=== PATIENT | female | born 1985 | race Caucasian/White ===

== ENCOUNTER → 2017-06-14 | Outpatient (CLI) | payer BC ==
[~2017-06-14] MED LIST: BCPILLS PO; ONDA4TAB7 SL
== END | disposition home or self-care (01) ==
LOC: C.LAB 07:45
PROVIDERS: ATTEND Obstetrics & Gynecology
DX: Z31.9 Encounter for procreative management, unspecified (principal)

== ENCOUNTER → 2017-11-15 | Outpatient (CLI) | payer BC | END | disposition home or self-care (01) | LOC: C.LAB 07:15 | PROVIDERS: ATTEND Obstetrics & Gynecology Reproductive Endocrinology | DX: N97.9 Female infertility, unspecified (principal) ==

== ENCOUNTER → 2017-11-23 | Outpatient (CLI) | payer BC | END | disposition home or self-care (01) | LOC: C.LAB 07:38 | PROVIDERS: ATTEND Obstetrics & Gynecology Reproductive Endocrinology | DX: N97.9 Female infertility, unspecified (principal) ==

== ENCOUNTER 2021-08-08 15:26 | Inpatient (IN) ==
[2021-08-08] MEDS ORDERED: LACTATED RINGER'S 1,000 ML IV SCH ×2 (16:15→20:04)
--- NOTE | 2021-08-08 16:19 | History & Physical Report ---
Date of Service August 08, 2021 Assessment & Plan (1) Previous delivery affecting , antepartum: Plan: Patient was hoping for TOLAC but after discussing additional risks with decreased BPP score, unripe cervix / requires IOL, she elects repeat as the safest option for her delivery at this time. (2) Oligohydramnios antepartum: Plan: Discovered today in office after decreased movement and nonreactive NST, found BPP of 6/10 with oligo. Given GA >39wk would proceed to delivery at this time. History of Present Illness Primary Care Provider: NO PCP 36yo (prior for twins, MAB and Ectopic) sent from office to L&D. Was seen for routine PNC visit and found to have decreased FM, therefore got NST, which was reassuring but nonreactive. BPP done and discovered oligohydramnios, BPP 6/10. She discussed with physician in office that at >39wk with oligo, typically we would not wait or repeat BPP in a day, rather should proceed to delivery today, and was sent to L&D. On arrival to L&D, I had opportunity to sit and discuss with the patient. She was very much hoping for TOLAC, as she did not want to have to go through surgical recovery, and had discussed with another provider the possibility of IOL if cervix was ripe. At this time per MD in office she is not ripe (Schneider <6) and has the unexpected additional factor of a fetus who has nonreassuring testing today. We discussed that although I will not refuse her an IOL attempt if she wants, there are multiple risk factors both in her and in our current facility (unripe cervix, testing indicating low fluid / suggesting poor placental function, meaning a high risk of NRFHT during labor which would trigger a decision for stat ; high current census, construction leaving no OR on same floor as L&D, etc) pushing her beyond the standard quoted risks of TOLAC, thus I do not recommend attempting IOL/TOLAC. Her safest course of delivery for this baby is undoubtedly a repeat . She was very disappointed but understood the reasoning and said she "will always do what is safest." We discussed her PTSD and fears from her last delivery, attempted to get an understanding of how we can help this delivery go well for her AND send her and this baby home healthy together. She wanted to wait until the FOB was here to make a final decision but anticipated agreeing to a repeat . Addendum: After FOB arrives and further discussion, patient elects to move forward with repeat CS. Consent completed with patient and FOB together, all questions answered. Allergies Allergy/AdvReac Type Severity Reaction Status Date / Time cephalexin [From Keflex] AdvReac Severe vertigo Verified 08/08/21 13:31 Home Medications Medication Instructions Recorded Confirmed Type aspirin 81 mg tablet,delayed 81 mg PO QPM 04/29/21 08/08/21 History release prenat.vits,shazia,[id number]-[id number] 1 tab PO DAILY 06/07/21 08/08/21 History Breast Pump #1 ea 07/18/21 08/08/21 Rx Breast Pump #1 ea 07/18/21 08/08/21 Rx Patient History Medical History Abnormal Pap smear of cervix 04/12 - Cotest HPV + normal colpo (during preg) 06/13 ASCUS HPV neg Chronic interstitial cystitis Gestational thrombocytopenia low platelet count last one was 96 Infertility Varicella vaccination Surgical History delivery delivered S/P wisdom tooth extraction Family History Father Coronary heart disease Mother Breast cancer Multiple sclerosis Colorectal cancer Aunt Breast cancer Denies family history of Ovarian cancer Social History Smoking Status: Never smoker Second Hand Exposure: No; Hx Alcohol Use: No Hx Substance Use: No Preferred Language: Kenyan Communication Ability: Effective Clothes Designer Required: No Beliefs That Will Affect Care: None marital status: marital status details: Justin Watson (35) [phone] Current Living Situation: Family Current Living Situation Comment: lives with spouse, 2 children, cat-spouse changing litter current occupational status: employed current occupation: [employer] [address] Other Information That Helps Us Care for You: No Feels Safe at Home: Yes Safety Concerns: Feels Safe At This Time Assistive Devices: None Physical Exam Constitutional: WD/WN, vitals as above Eyes: PERRL, conjunctivae normal, anicteric sclerae ENMT: external ear and nose normal, oropharynx normal Neck: supple Respiratory: normal respiratory effort and able to speak in complete sentences; no respiratory distress Cardiovascular: Rate/Rhythm: regular rate and regular rhythm Gastrointestinal (Abdomen): Gravid / AGA, nontender Musculoskeletal: no cyanosis or clubbing, extremities motor strength 5/5 Skin: no rashes, warm and dry Neurologic: patellar DTR's 2+ bilat, sensation intact Psychiatric: A+Ox3, euthymic affect Genitourinary: Speculum/Bimanual Exam: no vaginal lesions, no vaginal bleeding and uterus nontender OB Exam Abdomen: + vertex OB Exam Monitor Tracing: + external FHT monitor used, + external uterine monitor used and + category I Per Dr. Pascal in office, /-2 and no evidence of rupture (I discussed this visit and exam with Dr. Pascal by phone) Lymphatic: no cervical or axillary lymphadenopathy Code Status & VTE Plan VTE Prophylaxis Plan VTE Prophylaxis will be ordered: Yes Coding Level of Care Code None Diagnoses Previous delivery affecting , antepartum O34.219 Oligohydramnios antepartum O41.00X0
[2021-08-08 16:26] LABS: Hemoglobin 12.2 g/dL (12.0-16.0); Mean Corpuscular Hemoglobin 30.2 pg (25-34); Mean Corpuscular Hgb Conc 33.9 g/dL (32-36); Mean Corpuscular Volume 89.1 fL (80-100); Mean Platelet Volume 10.9 fL (7.4-10.4); Platelet Count 153 K/uL (130-400); RDW Coefficient of Variation 13.2 % (11.5-14.5); RDW Standard Deviation 42.5 fL (36.4-46.3); Red Blood Count 4.04 M/uL (4.2-5.4); White Blood Count 10.14 K/uL (4.8-10.8)
[2021-08-08] MEDS ORDERED: CITRIC ACID/SODIUM CITRATE 15 ML UDC PO SCH (16:30)
[2021-08-08] MEDS ORDERED: CLINDAMYCIN 900 MG in DEXTROSE 5% 50 ML IV SCH (16:30)
[2021-08-08 16:49] LABS: Alanine Aminotransferase 14 U/L (12-78); Albumin Level 2.6 gm/dl (3.4-5.0); Aspartate Aminotransferase 14 U/L (15-37); Bilirubin Direct < 0.1 mg/dl (0-0.2); Blood Urea Nitrogen 14 mg/dl (7-18); Calcium 8.8 mg/dl (8.5-10.1); Carbon Dioxide 22 mmol/L (21-32); Chloride 107 mmol/L (98-107); Est GFR (African American) 126.6 ml/min; Est GFR (Non-African American) 109.3 ml/min; Glucose 75 mg/dl (70-99); Potassium 3.6 mmol/L (3.5-5.1); Sodium 138 mmol/L (136-145)
[2021-08-08 16:51] LABS: Albumin Globulin Ratio 0.7 (0.9-2); Alkaline Phosphatase 331 U/L (45-117); Bilirubin,Total 0.4 mg/dl (0.2-1); Globulin 3.7 gm/dl (2.5-4.0); Total Protein 6.3 gm/dl (6.4-8.2)
[2021-08-08] MEDS ORDERED: MoRPHine SULFATE PF 1 MG/ML 10 ML AMP/VIAL ONE (17:53)
[2021-08-08] MEDS ORDERED: OXYTOCIN 10 UNITS/ML VIAL ONE ×2 (17:53→18:52)
[2021-08-08] MEDS ORDERED: fentaNYL citrate 100 MCG/2 ML VIAL ONE (17:53)
--- NOTE | 2021-08-08 18:12 | Anesthesiology Consultation ---
Date of Service August 08, 2021 Assessment & Plan Chart Review Chart Review: Acceptable Risk for Surgery and Patient NOT seen in Pre Admission Testing Consults Requested none ASA ASA2E Proposed Anesthesia Anesthesia Type: MAC Spinal Risk / Benefits Reviewed With: PT / POA / Parent / Guardian, Accepts Plan and Informed Consent Obtained History Surgery Operation Date: 08/08/21 18:30 Proposed Procedures p Section in LD(Bilateral) - Merary Sawant MD Height/Weight Height: 5 ft 8 in Weight: 99.79 kg Allergies Allergy/AdvReac Type Severity Reaction Status Date / Time cephalexin [From Keflex] AdvReac Severe vertigo Verified 08/08/21 13:31 Medications Home Medications Medication Instructions Recorded Confirmed Last Taken aspirin 81 mg tablet,delayed 81 mg PO QPM 04/29/21 08/08/21 08/07/21 23:00 release prenat.vits,shazia,wkm-gvwe-bkhxu 1 tab PO DAILY 06/07/21 08/08/21 08/07/21 23:00 Breast Pump #1 ea 07/18/21 08/08/21 Unknown Breast Pump #1 ea 07/18/21 08/08/21 Unknown NPO Date Last Intake of Fluids: 08/08/21 Time Last Intake of Fluids: 14:00 Date Last Intake of Solids: 08/08/21 Time Last Intake of Solids: 12:00 Last Intake of Solids Comment: yogurt Past Medical History Medical History Abnormal Pap smear of cervix 04/12 - Cotest HPV + normal colpo (during preg) 06/13 ASCUS HPV neg Chronic interstitial cystitis Gestational thrombocytopenia low platelet count last one was 96 Infertility Varicella vaccination Exercise / Class Metabolic Activity II 4-5 Yardwork/Stairs/Walk up hill Past Family History Family History Father Coronary heart disease Mother Breast cancer Multiple sclerosis Colorectal cancer Aunt Breast cancer Denies family history of Ovarian cancer Past Surgical History Surgical History delivery delivered S/P wisdom tooth extraction Past Anesthesia History No Hx of Anesthesia Complications and No Family Hx of Anesthesia Complications History of PONV No Hx of PONV and No Hx of Motion Sickness Social History Smoking Status: Never smoker Hx Alcohol Use: No Hx Substance Use: No substance use type: does not use Review of Systems no chest pain or sob Physical Exam Vital Signs Last Vital Signs Temp 36.9 C 08/08/21 16:06 Pulse 103 H 08/08/21 18:10 Resp 18 08/08/21 16:06 BP 122/79 08/08/21 16:15 Pulse Ox 98 08/08/21 18:10 ENMT Mouth: no TMJ abnormality Thyromental Distance: > or= 3.5 Finger Breadths Mallampati Class: II Neck normal visual inspection Respiratory normal respiratory effort Auscultation: lungs clear to auscultation bilaterally Cardiovascular Rate/Rhythm: regular rate and regular rhythm Musculoskeletal Spine: normal cervical ROM Neurologic moves all extremities Psychiatric Orientation: alert and oriented x 3 Testing Laboratory Results 08/08/21 16:16 08/08/21 16:16 Blood Type A Negative 08/08/21 16:16 Antibody Screen POSITIVE A 08/08/21 16:16
[2021-08-08] MEDS ORDERED: NALOXONE HCL 0.4 MG/1 ML VIAL/CARP IV PRN (18:14)
[2021-08-08] MEDS ORDERED: ONDANSETRON INJ 2 MG/ML 2 ML VIAL IV PRN (18:14)
[2021-08-08] MEDS ORDERED: ePHEDrine sulfate 50 MG/ML AMP IV PRN (18:14)
[2021-08-08] MEDS ORDERED: NALBUPHINE HCL INJ 10 MG/ML AMP IV PRN (18:14)
[2021-08-08] MEDS ORDERED: HYDROmorphone INJ 0.5 MG/0.5 ML SYR IV PRN (18:14)
[2021-08-08] MEDS ORDERED: LACTATED RINGER'S 500 ML IV PRN (18:14)
[2021-08-08] MEDS ORDERED: KETOROLAC 30 MG/ML VIAL IV PRN (18:14)
[2021-08-08] MEDS ORDERED: diphenhydrAMINE 50 MG/ML VIAL IV PRN (18:14)
[2021-08-08] MEDS ORDERED: NALOXONE HCL 1 MG in SODIUM CHLORIDE 0.9% 1000ML 1,000 ML IV PRN (18:14)
[2021-08-08] MEDS ORDERED: NALOXONE HCL 0.08 MG in SYRINGE 1.8 ML IV PRN (18:14)
[2021-08-08] MEDS ORDERED: MoRPHine SULFATE PF 1 MG/ML 10 ML AMP/VIAL INT SPINAL ONE (18:14)
[2021-08-08] MEDS ORDERED: NO NARCOTICS OR SEDATIVES SCH (18:15)
[2021-08-08] MEDS ORDERED: SODIUM CHLORIDE 0.9% 1000ML 1,000 ML IV SCH (18:15)
[2021-08-08] MEDS ORDERED: DC INTRASPINAL MORPHINE SCH (18:15)
[2021-08-08] MEDS ORDERED: PHENYLEPHRINE 100MCG/ML 5ML SYR ONE (18:40)
--- NOTE | 2021-08-08 19:28 | Operative Report ---
PG Post Operative Report Pre & Post Diagnosis Operation Date: 08/08/21 18:30 Pre-Op Diagnosis: History of Caesarean Section SIUP @ 39wd Oligohydramnios, BPP 6/10 Post-Op Diagnosis: Same as pre-op I identified the patient and participated in the time-out.: Yes Procedure Operation Date: 08/08/21 18:30 Actual Procedures Repeat Low-transverse section Surgeon Merary Sawant MD Schedule Checker Agustina GUPTA Estimated Blood Loss 500 Findings Consistent with Post-Op Diagnosis Specimens Placenta, Cord blood Anesthesia Type Spinal Complications none Disposition Accompanied Patient To Recovery: Yes Disposition: L&D Description of Procedure The patient was placed operating table in the supine position with a leftward tilt. She was prepped and draped in standard sterile fashion. The anesthetic was tested and found to be adequate. A time-out was held, identifying correct patient, procedure, positioning and preoperative antibiotics. There were no concerns. A Pfannenstiel skin incision was made with a knife, excising the prior scar, and taken down to the underlying layer of fascia. The fascia was incised in the midline with the knife and taken out laterally with scissors. The superior edge of the fascial incision was grasped, elevated and dissected off the underlying rectus both superiorly and inferiorly. The muscles were bluntly in the midline. The peritoneum was entered bluntly. The incision was then stretched. The bladder retractor was placed. The vesicouterine peritoneum was identified, entered with scissors and taken out laterally with scissors. The bladder flap was created digitally. A hysterotomy incision was created transversely in the lower uterine segment, final entry being accomplished in a blunt manner with the telex operator's fingers. Clear amniotic fluid was encountered. The telex operator's hand was used to elevate the head to the hysterotomy. The head was delivered using mild fundal pressure, and the shoulders and body followed without difficulty. The cord was clamped and cut and the was then handed off to the awaiting program evaluation consultant. Cord blood was obtained. The placenta was Manually extracted. The uterus was exteriorized and cleared of all clot and debris with moistened laparotomy sponges. The hysterotomy incision was repaired in two layers, the first in a running locked layer, the second in an imbricating layer. The ovaries and tubes were seen to be normal bilaterally. The uterus was gently replaced in the abdomen, and the gutters were cleared of clot and debris. A final inspection of the hysterotomy revealed good hemosta sis. The rectus muscles were allowed to reapproximate naturally. The fascia was then reapproximated with 1 Vicryl in a running nonlocked manner. The fascia was examined and found to be free of defect following closure. The subcutaneous tissue was copiously irrigated and reapproximated with 0-chromic, then the skin edges were closed with 4-0 monocryl in a subcuticular fashion. A dermabond dres sing was applied. The leon was found to be draining clear yellow urine at completion of the procedure. I attest to the content of the Intraoperative Record and any orders documented therein. Any exceptions are noted below. I attest to the content of the Intraoperative Record and any orders documented therein. Any exceptions are noted below.
[2021-08-08] MEDS ORDERED: DIPHTHERIA/TETANUS/PERTUSSIS 0.5 ML SYR/VIAL IM ONE (20:04)
[2021-08-08] MEDS ORDERED: SUPERCREAM 0.870% 15 GM JAR EXT PRN (20:04)
[2021-08-08] MEDS ORDERED: HYDROCORTISONE ACETATE 25 MG SUPP PR PRN (20:04)
[2021-08-08] MEDS ORDERED: SENNA 8.6 MG TAB PO PRN (20:04)
[2021-08-08] MEDS ORDERED: BENZOCAINE 20% AER SPR 82.5 GM CAN EXT PRN (20:04)
[2021-08-08] MEDS ORDERED: MAGNESIUM HYDROXIDE SUSP 30 ML UDC PO PRN (20:04)
[2021-08-08] MEDS ORDERED: OXYTOCIN 30 UNITS in LACTATED RINGER'S 1,000 ML IV SCH (20:30)
--- NOTE | 2021-08-08 20:38 | Anesthesiology Progress Note ---
Date of Service August 08, 2021 Anesthesia Post Procedure Vital Signs Vital Signs: Temp Pulse Resp BP Pulse Ox 08/08/21 20:36 88 96 08/08/21 20:31 92 H 98 08/08/21 20:28 90 94 08/08/21 20:26 85 96 08/08/21 20:21 81 96 08/08/21 20:18 83 133/65 08/08/21 20:16 87 96 08/08/21 20:11 88 95 08/08/21 20:08 86 126/70 08/08/21 20:06 89 96 08/08/21 20:01 88 97 08/08/21 19:59 53 L 96/58 L 08/08/21 19:56 93 H 96 08/08/21 19:51 88 96 08/08/21 19:48 90 132/69 08/08/21 19:46 68 97 08/08/21 19:41 79 97 08/08/21 19:38 86 116/56 L 08/08/21 19:36 95 H 98 08/08/21 19:31 78 97 08/08/21 19:29 80 111/53 L 08/08/21 19:26 83 98 08/08/21 19:21 36.2 C L 18 08/08/21 19:20 18 08/08/21 18:15 99 H 100 08/08/21 18:10 103 H 98 08/08/21 16:15 85 122/79 08/08/21 16:06 36.9 C 85 18 122/79 Transfer of Care Handoff Completed per policy Notes Mental Status: alert / awake / arousable Patient Amnestic to Procedure: Yes Nausea / Vomiting: adequately controlled Pain: adequately controlled Airway Patency, RR, SpO2: stable & adequate BP & HR: stable & adequate Hydration State: stable & adequate Neuraxial Anesthesia: was administered and sensory block is resolving Anesthetic Complications: no major complications apparent and Pt Satisfied with anesthetic care
[2021-08-08] MEDS: SIMETHICONE 80 MG CHEW PO SCH (22:00)
[2021-08-08] MEDS: DOCUSATE SODIUM 100 MG CAP PO SCH (22:01)
[2021-08-09] MEDS ORDERED: CITRIC ACID/SODIUM CITRATE 15 ML UDC PO SCH (06:00)
--- NOTE | 2021-08-09 06:17 | Obstetrical Progress Note ---
Date of Service August 09, 2021 Assessment & Plan (1) care following delivery: Plan: 36yo F POD 1 s/p . -h/o of HELLP syndrome, BP elevated this morning. Continue to monitor. Will get CMP, LDH, and uric acid level. -otherwise, she is doing well with no acute complaints, continue routine care, plan for discharge tomorrow. Admission and Anticipated Discharge Date Admission Date: August 08, 2021 Supervising Physician Co-Signing Physician Notes Resident Physician Supervision Note: I interviewed and examined the patient. Discussed with Dr. Ennis and agree with findings and plan as documented in the note. Any exceptions or clarifications are listed here: BP elevated last few checks, so will do [facility] labs again this morning to look for recurrence of HELLP. Doing well from postop standpoint. Documented By: Merary Sawant MD, FACOG Subjective POD 1 s/p . Patient seen and examined at bedside. Reports no acute overnight events. Not yet ambulating. Has not yet passed gas or stool. Breast feeding. Complains of some N/V, requests a regular diet. Review of Systems Review of Systems: Denies fevers/chills. Denies dyspnea, cough. Denies chest pain. Denies breast pain or discharge. Denies dysuria. Denies headache. Denies back pain. Physical Exam Physical Exam: General: Alert, oriented, no acute distress Cardiac: Regular rate and rhythm, normal S1, S2. No murmurs appreciated. Respiratory: Clear to auscultation b/l with good air flow entry, symmetric chest rise and fall. No wheezes or crackles. No increased work of breathing or accessory muscle use Abdomen: Soft, nontender, nondistended. Fundus firm and palpable at 1 cm below umbilicus. Surgical incision clean, dry and intact without erythema, warmth or drainage. Bowel sounds appreciated. No guarding or rebound. Skin: No rashes or lesions Extremities: Warm, dry, well-perfused with capillary refill <2s b/l. No lower extremity edema, erythema or swelling. Negative Rojelio's sign b/l. Results & Data ([facility]) Vital Signs (Past 12 Hours) Vital Signs Temp Pulse Pulse Resp BP BP Pulse Ox 08/09/21 04:45 20 100 08/09/21 03:45 36.5 C 72 20 147/87 H 100 08/09/21 02:49 16 99 08/09/21 02:45 20 99 08/09/21 01:45 20 99 08/08/21 23:45 20 100 08/08/21 22:45 36.4 C L 81 20 139/89 97 08/08/21 21:21 75 97 08/08/21 21:16 83 96 08/08/21 21:11 91 H 98 08/08/21 21:10 18 08/08/21 21:09 84 130/63 08/08/21 21:06 84 96 08/08/21 21:01 76 96 08/08/21 20:56 79 96 08/08/21 20:51 85 97 08/08/21 20:46 82 96 08/08/21 20:44 83 128/72 08/08/21 20:41 85 96 08/08/21 20:36 88 96 08/08/21 20:31 92 H 98 08/08/21 20:28 90 94 08/08/21 20:26 85 96 08/08/21 20:21 81 96 08/08/21 20:18 83 133/65 08/08/21 20:16 87 96 08/08/21 20:11 88 95 08/08/21 20:10 18 08/08/21 20:08 86 126/70 08/08/21 20:06 89 96 08/08/21 20:01 88 97 08/08/21 20:00 18 08/08/21 19:59 53 L 96/58 L 08/08/21 19:56 93 H 96 08/08/21 19:51 88 96 08/08/21 19:50 18 08/08/21 19:48 90 132/69 08/08/21 19:46 68 97 08/08/21 19:41 79 97 08/08/21 19:40 18 08/08/21 19:38 86 116/56 L 08/08/21 19:36 95 H 98 08/08/21 19:31 78 97 08/08/21 19:30 18 08/08/21 19:29 80 111/53 L 08/08/21 19:26 83 98 08/08/21 19:21 36.2 C L 18 08/08/21 19:20 18 Resident Activity Tracking Resident Involvement: Resident Care Provided Care Provided: OB Delivery
[2021-08-09 07:03] LABS: Basophils # (auto) 0.01 K/uL (0-0.2); Basophils % (auto) 0.1 %; Eosinophils # (auto) 0.01 K/uL (0-0.5); Eosinophils % (auto) 0.1 %; Hematocrit (blood only) 33.3 % (37-47); Hemoglobin 11.1 g/dL (12.0-16.0); Immature Granulocytes # (auto) 0.04 K/uL (0.00-0.02); Immature Granulocytes % (auto) 0.3 %; Lymphocytes # (auto) 1.41 K/uL (1.2-3.4); Lymphocytes % (auto) 12.2 %; Mean Corpuscular Hemoglobin 29.6 pg (25-34); Mean Corpuscular Hgb Conc 33.3 g/dL (32-36); Mean Corpuscular Volume 88.8 fL (80-100); Mean Platelet Volume 11.2 fL (7.4-10.4); Monocytes # (auto) 0.76 K/uL (0.11-0.59); Monocytes % (auto) 6.6 %; Neutrophils # (auto) 9.31 K/uL (1.4-6.5); Neutrophils % (auto) 80.7 %; Platelet Count 138 K/uL (130-400); RDW Coefficient of Variation 13.2 % (11.5-14.5); RDW Standard Deviation 42.3 fL (36.4-46.3); Red Blood Count 3.75 M/uL (4.2-5.4); White Blood Count 11.54 K/uL (4.8-10.8)
[2021-08-09 08:40] LABS: Albumin Level 2.2 gm/dl (3.4-5.0); BUN Creatinine Ratio 16.8 (10-20); Calcium 8.5 mg/dl (8.5-10.1); Creatinine Clr Calc Pharmacy 163.2 ml/min; Est GFR (African American) 137.8 ml/min; Est GFR (Non-African American) 118.9 ml/min; Potassium 3.7 mmol/L (3.5-5.1)
[2021-08-09 08:44] LABS: Albumin Globulin Ratio 0.7 (0.9-2); Bilirubin,Total 0.3 mg/dl (0.2-1); Globulin 3.2 gm/dl (2.5-4.0); Total Protein 5.4 gm/dl (6.4-8.2); Uric Acid 4.1 mg/dl (2.6-7.2)
[2021-08-09] MEDS: SIMETHICONE 80 MG CHEW PO SCH ×3 (11:25→19:50)
[2021-08-09] MEDS: FERROUS SULFATE 325 MG TAB PO SCH ×2 (11:25→19:57)
[2021-08-09] MEDS: PRENATAL VITAMIN 1 TAB PO SCH ×2 (11:25→19:57)
[2021-08-09] MEDS: DOCUSATE SODIUM 100 MG CAP PO SCH ×2 (11:25→19:52)
[2021-08-09] MEDS ORDERED: oxyCODONE/ACETAMINOPHEN 5mg/325mg TAB PO PRN (12:15)
[2021-08-09] MEDS ORDERED: diphenhydrAMINE 50 MG/ML VIAL IV PRN (12:15)
[2021-08-09] MEDS ORDERED: KETOROLAC 30 MG/ML VIAL IV PRN (12:15)
[2021-08-09] MEDS ORDERED: diphenhydrAMINE Capsule 25 MG CAP PO PRN (12:15)
[2021-08-09] MEDS ORDERED: PROMETHAZINE HCL 25 MG in SODIUM CHLORIDE 0.9% 50 ML IV PRN (12:15)
[2021-08-09] MEDS ORDERED: MEPERIDINE HCL 50 MG/ML CARP IV PRN (12:15)
[2021-08-09] MEDS ORDERED: ONDANSETRON INJ 2 MG/ML 2 ML VIAL IV PRN (12:15)
[2021-08-09] MEDS: IBUPROFEN 600 MG TAB PO PRN ×2 (12:49→19:53)
[2021-08-10] MEDS: IBUPROFEN 600 MG TAB PO PRN ×2 (04:08→08:51)
[2021-08-10 06:40] LABS: Hematocrit (blood only) 33.2 % (37-47); Hemoglobin 10.9 g/dL (12.0-16.0)
--- NOTE | 2021-08-10 07:49 | Obstetrical Progress Note ---
Date of Service August 10, 2021 Assessment & Plan (1) care following delivery: Plan: 36yo F POD 2 s/p LCTS at 39 weeks. -Continue routine care -Vitals reviewed- HDS, afebrile -Encourage ambulation, regular diet -Pain control with ibuprofen, acetaminophen PRN -Encourage -Hgb 11.1 -h/o of HELLP syndrome, BP WNL this morning; CMP, LDH, and uric acid normal. -likely discharge today, f/u in 6 weeks with OB after discharge Admission and Anticipated Discharge Date Admission Date: August 08, 2021 Supervising Physician Co-Signing Physician Notes Resident Physician Supervision Note: I interviewed and examined the patient. Discussed with Dr. Ennis and agree with findings and plan as documented in the note. Any exceptions or clarifications are listed here: [None] Documented By: Christy White MD, FACOG Subjective POD 2 s/p LTCS. Patient seen and examined at bedside. Reports no acute overnight events. Ambulating and voiding. Has passed gas, not yet stool. Regular diet w/o N/V. Breast feeding. Complains of no pain. Review of Systems Review of Systems: Denies fevers/chills. Denies dyspnea, cough. Denies chest pain. Denies breast pain or discharge. Denies dysuria. Denies headache. Denies back pain. Physical Exam Physical Exam: General: Alert, oriented, no acute distress Cardiac: Regular rate and rhythm, normal S1, S2. No murmurs appreciated. Respiratory: Clear to auscultation b/l with good air flow entry, symmetric chest rise and fall. No wheezes or crackles. No increased work of breathing or accessory muscle use Abdomen: Soft, nontender, nondistended. Fundus firm and palpable at 2 cm below umbilicus. Surgical incision clean, dry and intact without erythema, warmth or drainage. Bowel sounds appreciated. No guarding or rebound. Skin: No rashes or lesions Extremities: Warm, dry, well-perfused with capillary refill <2s b/l. No lower extremity edema, erythema or swelling. Negative Rojelio's sign b/l. Results & Data ([facility]) Vital Signs (Past 12 Hours) Vital Signs Temp Pulse Resp BP Pulse Ox 08/10/21 01:35 36.6 C 72 16 117/77 97 08/09/21 20:00 36.8 C 72 16 125/85 100 Resident Activity Tracking Resident Involvement: Resident Care Provided Care Provided: Adult Hospital Medicine
[2021-08-10] MEDS: FERROUS SULFATE 325 MG TAB PO SCH (08:49)
[2021-08-10] MEDS: DOCUSATE SODIUM 100 MG CAP PO SCH (08:49)
[2021-08-10] MEDS: SIMETHICONE 80 MG CHEW PO SCH (08:49)
--- NOTE | 2021-08-12 12:38 | Discharge Summary ---
Date of Service August 12, 2021 Admission HPI Per Admitting Provider 36yo (prior for twins, MAB and Ectopic) sent from office to L&D. Was seen for routine PNC visit and found to have decreased FM, therefore got NST, which was reassuring but nonreactive. BPP done and discovered oligohydramnios, BPP 6/10. She discussed with physician in office that at >39wk with oligo, typically we would not wait or repeat BPP in a day, rather should proceed to delivery today, and was sent to L&D. On arrival to L&D, I had opportunity to sit and discuss with the patient. She was very much hoping for TOLAC, as she did not want to have to go through surgical recovery, and had discussed with another provider the possibility of IOL if cervix was ripe. At this time per MD in office she is not ripe (Schneider <6) and has the unexpected additional factor of a fetus who has nonreassuring testing today. We discussed that although I will not refuse her an IOL attempt if she wants, there are multiple risk factors both in her and in our current facility (unripe cervix, testing indicating low fluid / suggesting poor placental function, meaning a high risk of NRFHT during labor which would trigger a decision for stat ; high current census, construction leaving no OR on same floor as L&D, etc) pushing her beyond the standard quoted risks of TOLAC, thus I do not recommend attempting IOL/TOLAC. Her safest course of delivery for this baby is undoubtedly a repeat . She was very disappointed but understood the reasoning and said she "will always do what is safest." We discussed her PTSD and fears from her last delivery, attempted to get an understanding of how we can help this delivery go well for her AND send her and this baby home healthy together. She wanted to wait until the FOB was here to make a final decision but anticipated agreeing to a repeat . Addendum: After FOB arrives and further discussion, patient elects to move forward with repeat CS. Consent completed with patient and FOB together, all questions answered. Discharge Data Consultations 08/08/21 16:03 Consult Anesthesiology Stat Procedures Performed Operation Date: 08/08/21 18:30 Actual Procedures p Section in LD; Live male child at 1849 (Main OR #3)(Bilateral) - Merary Sawant MD Coding Level of Care Code None
== END 2021-08-10 13:00 | disposition home or self-care (01) | DRG 788 ==
LOC: OPB 15:26 → 4S2 15:28
DX: O41.03X0 Oligohydramnios, third trimester, not applicable or unspecified; Z37.0 Single live birth; Z3A.39 39 weeks gestation of pregnancy; O99.344 Other mental disorders complicating childbirth; F43.10 Post-traumatic stress disorder, unspecified; O36.8130 Decreased fetal movements, third trimester, not applicable or unspecified; Z87.59 Personal history of other complications of pregnancy, childbirth and the puerperium; O34.211 Maternal care for low transverse scar from previous cesarean delivery